=== PATIENT | male | born 1965 | race Caucasian/White ===

== ENCOUNTER 2018-10-16 05:59 | Emergency (ER) | payer MEDICAID ==
[~2018-10-16] VITALS: Ht 175.3 cm; Wt 81.8 kg
[~2018-10-16 05:59] MED LIST: CETI-110 PO; CLIN-96 PO; FAMO20TA8 PO; GABA-532 PO; GABA600T13 PO; NAPR-56 PO; PRED20TA PO
[2018-10-16 06:55] LABS: CLARITY,URINE CLEAR (Clear); COLOR,URINE YELLOW (Yellow); GLUCOSE, URINE NEGATIVE (Neg); KETONES,URINE >=80 mg/dl (Neg); LEUKOCYTE ESTERASE ,URINE NEGATIVE (Neg); NITRITES, URINE NEGATIVE (Neg); OCCULT BLOOD,URINE NEGATIVE (Neg); PH,URINE 7.5 (4.8-8.0); PROTEIN,URINE NEGATIVE (Neg)
[2018-10-16] MEDS ORDERED: ondansetron/PF 4mg/2ml inj IV ONE (06:55)
[2018-10-16] MEDS ORDERED: normal saline 1000ML IV soln IVB ONE (06:55)
[2018-10-16] MEDS ORDERED: pantoprazole 40 MG vial IV ONE (06:55)
[2018-10-16 07:00] LABS: UA COLLECTION TYPE CLN CATCH MIDSTREAM
[2018-10-16 08:59] LABS: BASOPHILS # (AUTO) 0.1 X10'3 (0-0.2); BASOPHILS % (AUTO) 0.3 % (0-1); EOSINOPHILS % (AUTO) 0.3 % (0-6); HEMATOCRIT 39.7 % (42.0-52.0); HEMOGLOBIN 13.2 g/dl (14.0-17.9); MEAN CORPUSCULAR HGB CONC 33.3 g/dL (33.0-36.5); MEAN CORPUSCULAR VOLUME 86.9 FL (78-98); MEAN PLATELET VOLUME 8.8 FL (7.4-10.4); MONOCYTES % (AUTO) 6.5 % (2-12); NEUTROPHILS % (AUTO) 79.9 % (42-75); PLATELET COUNT 246 X10'3 (140-440); RED BLOOD COUNT 4.56 X10'6 (4.70-6.10); RED CELL DISTRIBUTION WIDTH 13.8 % (11.5-14.5); WHITE BLOOD COUNT 15.1 X10'3 (4.5-11.0)
[2018-10-16 09:08] LABS: ALANINE AMINOTRANSFERASE 29 U/L (12-78); ALBUMIN 3.1 G/DL (3.4-5.0); ALBUMIN/GLOBULIN RATIO 0.8 (1.1-1.5); ALKALINE PHOSPHATASE 62 IU/L (46-116); ANION GAP 11 (8-16); ASPARTATE AMINO TRANSFERASE 19 U/L (10-37); BILIRUBIN,TOTAL 0.6 MG/DL (0.1-1.0); BLOOD UREA NITROGEN 9 MG/DL (7-18); BUN/CREATININE RATIO 12.3 (5.4-32.0); CALCIUM 8.1 MG/DL (8.5-10.1); CHLORIDE 106 MMOL/L (99-107); CREATININE 0.73 MG/DL (0.60-1.10); GLUCOSE 106 MG/DL (70-104); LIPASE 63 U/L (73-393); POTASSIUM 3.7 MMOL/L (3.5-5.1); SODIUM 139 MMOL/L (135-145); TOTAL CARBON DIOXIDE 22.2 MMOL/L (24-32); TOTAL PROTEIN 7.1 G/DL (6.4-8.2); eGFR > 90 ML/MIN
--- NOTE | 2018-10-16 09:16 | NUR ---
PT IS SLEEPING ON RIGHT SIDE, RESPIRATIONS SPONTANEOUS, EVEN AND UNLABORED, NO S/S OF DISTRESS DISCOMFORT OR AGITATION.
[2018-10-16] MEDS ORDERED: ONDA8TAB13 PO (09:58)
[2018-10-16] MEDS ORDERED: PANT-47 PO (09:58)
[2018-10-16 10:00] VITALS: BP 154/82
== END 2018-10-16 10:11 | disposition home or self-care (01) ==
LOC: ER 06:00
DX: R10.13 Epigastric pain (principal); R11.2 Nausea with vomiting, unspecified; R19.7 Diarrhea, unspecified; I10 Essential (primary) hypertension; G89.29 Other chronic pain; F12.90 Cannabis use, unspecified, uncomplicated; F15.90 Other stimulant use, unspecified, uncomplicated; F17.200 Nicotine dependence, unspecified, uncomplicated; Z98.890 Other specified postprocedural states; Z88.0 Allergy status to penicillin; Z88.1 Allergy status to other antibiotic agents; Z88.5 Allergy status to narcotic agent; Z88.8 Allergy status to other drugs, medicaments and biological substances; Z79.899 Other long term (current) drug therapy; Z56.0 Unemployment, unspecified
CPT/HCPCS: 36415; 80053; 81003; 83690; 85025; 96361; 96374; 96375; 99283; C9113; J2405; J7030

== ENCOUNTER 2019-05-07 00:31 | Emergency (ER) | payer MEDICAID ==
[~2019-05-07] VITALS: Ht 175.3 cm; Wt 75.0 kg
[~2019-05-07 00:31] MED LIST changes: +CLIN-90 PO; -CLIN-96 PO; +ONDA8TAB13 PO; +PANT-47 PO
[2019-05-07 00:35] VITALS: BP 168/90
[2019-05-07] MEDS ORDERED: DOXY100C43 PO (00:40)
== END 2019-05-07 00:48 | disposition home or self-care (01) ==
LOC: ER 00:32
DX: L03.116 Cellulitis of left lower limb (principal); I10 Essential (primary) hypertension; G89.29 Other chronic pain; F12.90 Cannabis use, unspecified, uncomplicated; F15.90 Other stimulant use, unspecified, uncomplicated; F10.99 Alcohol use, unspecified with unspecified alcohol-induced disorder; Z86.19 Personal history of other infectious and parasitic diseases; Z98.890 Other specified postprocedural states; Z56.0 Unemployment, unspecified; Z88.0 Allergy status to penicillin; Z88.1 Allergy status to other antibiotic agents; Z88.5 Allergy status to narcotic agent; Z88.8 Allergy status to other drugs, medicaments and biological substances; Z79.899 Other long term (current) drug therapy; Z59.0 Homelessness; Y90.9 Presence of alcohol in blood, level not specified
CPT/HCPCS: 99283

== ENCOUNTER 2020-12-05 19:26 | Emergency (ER) | payer MEDICAID ==
[~2020-12-05] VITALS: Ht 175.3 cm; Wt 84.0 kg
[~2020-12-05 19:26] MED LIST changes: -CETI-110 PO; +CETI-91 PO; -CLIN-90 PO; +CLIN-97 PO
[2020-12-05 19:59] VITALS: BP 147/100
[2020-12-05] MEDS ORDERED: DIPH25TA62 PO (22:57)
[2020-12-05] MEDS ORDERED: HYDR28CR14 TOP (22:57)
== END 2020-12-05 23:10 | disposition home or self-care (01) ==
LOC: ER 19:27
DX: L23.89 Allergic contact dermatitis due to other agents (principal); I10 Essential (primary) hypertension; F12.90 Cannabis use, unspecified, uncomplicated; F15.90 Other stimulant use, unspecified, uncomplicated; G89.29 Other chronic pain; Z98.890 Other specified postprocedural states; Z72.89 Other problems related to lifestyle; Z88.0 Allergy status to penicillin; Z88.1 Allergy status to other antibiotic agents; Z88.8 Allergy status to other drugs, medicaments and biological substances; Z79.2 Long term (current) use of antibiotics; Z79.899 Other long term (current) drug therapy; Z86.19 Personal history of other infectious and parasitic diseases; Z56.0 Unemployment, unspecified
CPT/HCPCS: 99284

== ENCOUNTER 2020-12-18 19:31 | Emergency (ER) | payer MEDICAID ==
[~2020-12-18] VITALS: Ht 175.3 cm; Wt 81.8 kg
[~2020-12-18 19:31] MED LIST changes: +DIPH25TA62 PO; +HYDR28CR14 TOP
[2020-12-18 22:01] VITALS: BP 152/80
[2020-12-18] MEDS ORDERED: clindamycin 150mg capsule PO ONE (22:10)
[2020-12-18] MEDS ORDERED: CLIN-117 PO (22:11)
== END 2020-12-18 22:27 | disposition home or self-care (01) ==
LOC: ER 19:33
DX: L03.115 Cellulitis of right lower limb (principal); M54.5 Low back pain; F17.210 Nicotine dependence, cigarettes, uncomplicated; Z56.0 Unemployment, unspecified; F12.10 Cannabis abuse, uncomplicated; F15.10 Other stimulant abuse, uncomplicated; Z88.0 Allergy status to penicillin; Z88.1 Allergy status to other antibiotic agents; Z88.5 Allergy status to narcotic agent; Z88.8 Allergy status to other drugs, medicaments and biological substances; Z79.899 Other long term (current) drug therapy
CPT/HCPCS: 99283

== ENCOUNTER 2021-02-10 20:54 | Emergency (ER) | payer MEDICAID ==
[~2021-02-10] VITALS: Ht 175.3 cm; Wt 77.0 kg
[2021-02-10 21:36] VITALS: BP 130/81
[2021-02-10] MEDS ORDERED: LIDOcaine 1% W/epiNEPHrine 1:200,000 10ml vial IJ ONE (22:05)
--- NOTE | 2021-02-10 22:36 | NUR ---
IFEOMA REDD AT BEDSIDE NOW TO REPAIR LAC TO TOP OF HEAD. HE WILL ORDER HEAD CT. PT ASKED WHERE HE WILL GO WHEN DISCHARGED AND HE STATES AN ADDRESS IN [place] THAT IS A PROPERTY, THEN STATES, HE DOES NOT WANT TO GO THERE. THEN TOLD ME "[address]" AND REPORTS HE CANNOT REMEMBER THE [address]. ASKED IF HE CAN CALL ANYONOE FOR DC TRANSPORT AND HE STATES HE DOES NOT KNOW ANY OF THE NUMBERS. PT IS CONTINUOUOSLY FALILNG ANGELA MID SENTENCE.
--- NOTE | 2021-02-10 23:08 | NUR ---
pt head was wrapped by niranjan nieves.
== END 2021-02-11 00:43 | disposition home or self-care (01) ==
LOC: ER 20:56
DX: S01.01XA Laceration without foreign body of scalp, initial encounter (principal); I10 Essential (primary) hypertension; G89.29 Other chronic pain; F12.90 Cannabis use, unspecified, uncomplicated; F15.90 Other stimulant use, unspecified, uncomplicated; Z86.19 Personal history of other infectious and parasitic diseases; Z98.890 Other specified postprocedural states; Z72.89 Other problems related to lifestyle; Z56.0 Unemployment, unspecified; Z88.0 Allergy status to penicillin; Z88.5 Allergy status to narcotic agent; Z88.1 Allergy status to other antibiotic agents; Z88.8 Allergy status to other drugs, medicaments and biological substances; Z79.2 Long term (current) use of antibiotics; Z79.899 Other long term (current) drug therapy; Y93.89 Activity, other specified; Y92.89 Other specified places as the place of occurrence of the external cause; Y99.8 Other external cause status
CPT/HCPCS: 12001; 70450; 99284

== ENCOUNTER 2021-03-03 20:02 | Emergency (ER) | payer MEDICAID ==
[~2021-03-03] VITALS: Ht 175.3 cm; Wt 80.9 kg
[2021-03-03] MEDS ORDERED: SULF1TAB49 PO (20:50)
[2021-03-03 21:14] VITALS: BP 127/62
== END 2021-03-03 21:15 | disposition home or self-care (01) ==
LOC: ER 20:03
DX: L03.116 Cellulitis of left lower limb (principal); L03.115 Cellulitis of right lower limb; I10 Essential (primary) hypertension; G89.29 Other chronic pain; M54.9 Dorsalgia, unspecified; Z88.0 Allergy status to penicillin; Z88.1 Allergy status to other antibiotic agents; Z88.5 Allergy status to narcotic agent; Z79.899 Other long term (current) drug therapy; Z48.00 Encounter for change or removal of nonsurgical wound dressing
CPT/HCPCS: 99283

== ENCOUNTER 2021-07-05 17:32 | Inpatient (IN) | payer MEDICAID ==
[~2021-07-05] VITALS: Ht 175.3 cm; Wt 71.0 kg
[2021-07-05] MEDS ORDERED: vancomycin/NS 1 GM ADD-VANTAGE 250 ML IV ONE (22:45)
[2021-07-05] MEDS ORDERED: normal saline 1000ML IV soln IV ONE (22:45)
[2021-07-05] MEDS ORDERED: levoFLOXACIN-Levaquin 500mg/D5 100 ML IV SCH (22:45)
[2021-07-05] MEDS ORDERED: LIDOcaine 1% W/epiNEPHrine 1:200,000 10ml vial IJ ONE (22:50)
[2021-07-05] MEDS ORDERED: LIDOcaine 1% w/epiNEPHrine 1:200,000 30ml vial IJ ONE (22:55)
[2021-07-05] MEDS ORDERED: HYDROcodone/acetaminophen 5mg/325mg tablet PO ONE (23:05)
[2021-07-05] MEDS ORDERED: LIDOcaine 1% w/EPI 1:100,000 30ml vial (MDV) IJ ONE (23:10)
[2021-07-05 23:25] LABS: BASOPHILS # (AUTO) 0.1 X10'3 (0-0.2); BASOPHILS % (AUTO) 0.3 % (0-1); EOSINOPHILS # (AUTO) 0.1 X10'3 (0-0.9); EOSINOPHILS % (AUTO) 0.8 % (0-6); HEMOGLOBIN 10.3 g/dl (14.0-17.9); LYMPHOCYTES # (AUTO) 2.4 X10'3 (1.1-4.8); LYMPHOCYTES % (AUTO) 14.7 % (21-51); MEAN CORPUSCULAR HEMOGLOBIN 29.3 PG (27.0-31.0); MEAN CORPUSCULAR HGB CONC 34.2 g/dL (33.0-36.5); MEAN CORPUSCULAR VOLUME 85.7 FL (78-98); MEAN PLATELET VOLUME 7.9 FL (7.4-10.4); MONOCYTES # (AUTO) 1.4 X10'3 (0-0.9); MONOCYTES % (AUTO) 8.5 % (2-12); NEUTROPHILS # (AUTO) 12.2 X10'3 (1.8-7.7); NEUTROPHILS % (AUTO) 75.7 % (42-75); PLATELET COUNT 426 X10'3 (140-440); RED CELL DISTRIBUTION WIDTH 13.7 % (11.5-14.5); WHITE BLOOD COUNT 16.2 X10'3 (4.5-11.0)
[2021-07-05 23:44] LABS: ALANINE AMINOTRANSFERASE 21 U/L (12-78); ALBUMIN 2.5 G/DL (3.4-5.0); ALBUMIN/GLOBULIN RATIO 0.4 (1.1-1.5); ALKALINE PHOSPHATASE 90 IU/L (46-116); ANION GAP 11 (8-16); ASPARTATE AMINO TRANSFERASE 29 U/L (10-37); BILIRUBIN,TOTAL 0.5 MG/DL (0.1-1.0); BLOOD UREA NITROGEN 13 MG/DL (7-18); CALCIUM 8.8 MG/DL (8.5-10.1); CHLORIDE 101 MMOL/L (99-107); CREATININE 0.81 MG/DL (0.60-1.10); GLUCOSE 97 MG/DL (70-104); MAGNESIUM 1.9 MG/DL (1.5-2.4); POTASSIUM 3.6 MMOL/L (3.5-5.1); SODIUM 136 MMOL/L (135-145); TOTAL CARBON DIOXIDE 24.3 MMOL/L (24-32); TOTAL PROTEIN 8.4 G/DL (6.4-8.2); eGFR > 90 ML/MIN
[2021-07-05 23:46] LABS: CLARITY,URINE CLEAR (Clear); COLOR,URINE YELLOW (Yellow); GLUCOSE, URINE NEGATIVE (Neg); KETONES,URINE NEGATIVE (Neg); LEUKOCYTE ESTERASE ,URINE NEGATIVE (Neg); NITRITES, URINE NEGATIVE (Neg); OCCULT BLOOD,URINE TRACE-LYSED (Neg); PROTEIN,URINE NEGATIVE (Neg); UROBILINOGEN,URINE 0.2 E.U/dL (0.2-1.0)
[2021-07-05 23:52] LABS: UA COLLECTION TYPE CLN CATCH MIDSTREAM
[2021-07-05 23:54] LABS: BACTERIA,URINE NONE SEEN /HPF (Neg); RBC,URINE 0-2 /HPF (0-2); SQUAMOUS EPITHELIAL CELL,UR FEW /LPF (FEW); WBC,URINE 0-4 /HPF (0-4)
[2021-07-06] MEDS ORDERED: morphine 2 MG/ML inj. syringe IV PRN ×2 (00:20)
[2021-07-06] MEDS ORDERED: magnesium 4gm in 100ml NS 100 ML IV PRN (00:20)
[2021-07-06] MEDS ORDERED: HYDROcodone/acetaminophen 5mg/325mg tablet PO PRN (00:20)
[2021-07-06] MEDS ORDERED: mag hydrox/Alum hydrox/simeth 30ml oral suspension PO PRN (00:20)
[2021-07-06] MEDS ORDERED: magnesium hydroxide 30ml (MOM) UD suspension PO PRN (00:20)
[2021-07-06] MEDS ORDERED: magnesium 2GM in 50ml NS 50 ML IV PRN (00:20)
[2021-07-06] MEDS ORDERED: acetaminophen 325mg tablet PO PRN ×2 (00:20)
[2021-07-06] MEDS ORDERED: potassium CL 10mEq/100ml bag 100 ML IV PRN (00:20)
[2021-07-06] MEDS ORDERED: magnesium Cl slow-release 64mg tablet PO PRN (00:20)
[2021-07-06] MEDS ORDERED: ondansetron/PF 4mg/2ml inj IV PRN (00:20)
[2021-07-06] MEDS ORDERED: potassium Cl 20 mEq SR tablet PO PRN ×2 (00:20)
[2021-07-06] MEDS: normal saline 1000ml 1,000 ML IV SCH ×3 (00:20→15:32)
[2021-07-06] MEDS ORDERED: nicotine 14mg patch - 24hr TD ONE (00:30)
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
[2021-07-06 01:30] VITALS: BP 105/63
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
--- NOTE | 2021-07-06 02:25 | NUR ---
no left eye, wearing patch, declines to have removed and assessed. right eye intact refuses pupil check Addendum: 07/06/21 at 0229 by Loren Moscoso RN Amended: Links added.
--- NOTE | 2021-07-06 02:42 | NUR ---
LEFT EYE PATRCH NO EYE DENIES TO ANSWER INF ARTIFICIAL EYE IN PLACE. REFUSES TO HAVE ASSESSED Addendum: 07/06/21 at 0247 by Loren Moscoso RN Amended: Links added.
[2021-07-06] MEDS: HYDROcodone/acetaminophen 10/325mg tab PO PRN ×2 (05:24→20:45)
--- NOTE | 2021-07-06 06:05 | NUR ---
Problems reprioritized. Patient report given, questions answered & plan of care reviewed with SUHA PENA. Addendum: 07/06/21 at 0606 by Loren Moscoso RN Amended: Links added.
--- NOTE | 2021-07-06 06:30 | NUR ---
Patient in room [facility]. I have received report from Claritza BORDEN and had the opportunity to ask questions and assume patient care.
[2021-07-06 07:06] VITALS: BP 119/76
[2021-07-06] MEDS: K and/or MAG REPLACEMENT MC SCH ×2 (08:00→20:00)
[2021-07-06] MEDS ORDERED: NO HOME MEDS (08:12)
--- NOTE | 2021-07-06 08:12 | NUR ---
pt experiencing more weakness on the right side in upper extremities. Addendum: 07/06/21 at 0835 by Geovanna Goel - Ananya DAWSON Amended: Links added.
[2021-07-06] MEDS: docusate sod 100mg capsule PO SCH ×2 (08:36→20:44)
[2021-07-06] MEDS: enoxaparin 40mg/0.4ml syringe SUBCUT SCH (08:37)
[2021-07-06] MEDS: VANCOmycin 1250MG/NS 250ml Bag 250 ML IV SCH ×2 (08:48→20:44)
[2021-07-06 11:23] VITALS: BP 124/65
[2021-07-06 11:26] LABS: MAGNESIUM 1.8 MG/DL (1.5-2.4); POTASSIUM 3.7 MMOL/L (3.5-5.1)
[2021-07-06 18:00] VITALS: BP 137/88
--- NOTE | 2021-07-06 18:40 | NUR ---
Patient in room [facility]. I have received report from SUHA Villagomez and had the opportunity to ask questions and assume patient care.
--- NOTE | 2021-07-06 18:40 | NUR ---
Problems reprioritized. Patient report given, questions answered & plan of care reviewed with Kevin RN/Geetha RN.
--- NOTE | 2021-07-06 18:51 | NUR ---
Patient in room [facility]. I have received report from SUHA Villagomez and had the opportunity to ask questions and assume patient care.
[2021-07-06] MEDS: lactobacillus rhamnosus 10,000 MMU CELLS/CAPSULE PO SCH (20:44)
[2021-07-07 00:08] VITALS: BP 136/77
[2021-07-07] MEDS: HYDROcodone/acetaminophen 10/325mg tab PO PRN ×2 (02:44→08:20)
[2021-07-07] MEDS: normal saline 1000ml 1,000 ML IV SCH (02:44)
--- NOTE | 2021-07-07 06:05 | NUR ---
Problems reprioritized. Patient report given, questions answered & plan of care reviewed with SUHA Suarez.
--- NOTE | 2021-07-07 06:05 | NUR ---
I agree with SUHA Iniguezpsychiatric assistant, charting, and report given to SUHA Rowan Addendum: 07/07/21 at 0607 by Kevin Munroe RN SUHA Suarez
--- NOTE | 2021-07-07 06:31 | NUR ---
Patient in room [facility]. I have received report from alexander nix and had the opportunity to ask questions and assume patient care.
[2021-07-07 07:00] VITALS: BP 134/91
[2021-07-07] MEDS ORDERED: VANCOMYCIN LEVEL IV ONE (07:30)
[2021-07-07] MEDS: K and/or MAG REPLACEMENT MC SCH (08:00)
[2021-07-07] MEDS: VANCOmycin 1250MG/NS 250ml Bag 250 ML IV SCH (08:17)
[2021-07-07] MEDS: enoxaparin 40mg/0.4ml syringe SUBCUT SCH (08:18)
[2021-07-07] MEDS: docusate sod 100mg capsule PO SCH (08:19)
[2021-07-07] MEDS: lactobacillus rhamnosus 10,000 MMU CELLS/CAPSULE PO SCH (08:19)
[2021-07-07] MEDS ORDERED: CLIN-97 PO ×2 (10:55)
[2021-07-07 11:38] VITALS: BP 152/99
[2021-07-07 11:59] LABS: BASOPHILS # (AUTO) 0.1 X10'3 (0-0.2); BASOPHILS % (AUTO) 1.1 % (0-1); EOSINOPHILS # (AUTO) 0.2 X10'3 (0-0.9); EOSINOPHILS % (AUTO) 1.9 % (0-6); HEMATOCRIT 32.4 % (42.0-52.0); HEMOGLOBIN 10.7 g/dl (14.0-17.9); LYMPHOCYTES # (AUTO) 2.7 X10'3 (1.1-4.8); LYMPHOCYTES % (AUTO) 24.7 % (21-51); MEAN CORPUSCULAR HEMOGLOBIN 29.1 PG (27.0-31.0); MEAN CORPUSCULAR HGB CONC 32.9 g/dL (33.0-36.5); MEAN CORPUSCULAR VOLUME 88.5 FL (78-98); MEAN PLATELET VOLUME 8.4 FL (7.4-10.4); MONOCYTES # (AUTO) 0.9 X10'3 (0-0.9); MONOCYTES % (AUTO) 7.7 % (2-12); NEUTROPHILS # (AUTO) 7.1 X10'3 (1.8-7.7); NEUTROPHILS % (AUTO) 64.6 % (42-75); PLATELET COUNT 452 X10'3 (140-440); RED BLOOD COUNT 3.66 X10'6 (4.70-6.10)
[2021-07-07 12:18] LABS: ALBUMIN 2.1 G/DL (3.4-5.0); ANION GAP 8 (8-16); BLOOD UREA NITROGEN 8 MG/DL (7-18); BUN/CREATININE RATIO 10.8 (5.4-32.0); CALCIUM 8.7 MG/DL (8.5-10.1); CHLORIDE 106 MMOL/L (99-107); CREATININE 0.74 MG/DL (0.60-1.10); GLUCOSE 101 MG/DL (70-104); MAGNESIUM 1.7 MG/DL (1.5-2.4); POTASSIUM 4.5 MMOL/L (3.5-5.1); SODIUM 139 MMOL/L (135-145); TOTAL CARBON DIOXIDE 25.4 MMOL/L (24-32); eGFR > 90 ML/MIN
--- NOTE | 2021-07-07 13:56 | NUR ---
Pt discharged > 2hrs ago however we are still waiting on [facility] for patient to D/C with. Called [facility] and left a message.
--- NOTE | 2021-07-07 16:53 | NUR ---
pt discharged at 1500. belongings sent with pt. iv removed, tip intact, no complications. Pt educated on follow up with wound care. pt discharged in stable condition
[2021-07-08] MEDS ORDERED: LEVO750T46 PO (11:59)
--- NOTE | 2021-07-08 12:21 | NUR ---
Tried to contact patient per Dr Sheehan request due to sensitivity came back on cultures and he is calling in a new rx to [facility] on [address]. We have no phone number for patient and I contacted the [facility] to see if they have a phone number and they gave me [phone] and when I called this number it is disconnected. Per Valery at the pharmacy patient has not picked up his prescription yet and they are aware to change patients Rx to the current one called in. Advised Dr Sheehan, and I advised Ashley with case management and she will get the message to wound care due to patient has appt on Saturday the Jul 10.
== END 2021-07-07 15:16 | disposition home or self-care (01) | DRG 951 ==
LOC: ER 17:33 → ED HOLD 07-06 00:21 → EDBEDREQ 07-06 00:37 → SUR 3N 07-06 01:20
PROVIDERS: ADMIT Internal Medicine; ATTEND Family Medicine
PROC: 0S9D0ZZ Drainage of Left Knee Joint, Open Approach (ICD-10-PCS; principal; 2021-07-05)
DX: L03.116 Cellulitis of left lower limb (principal); B19.20 Unspecified viral hepatitis C without hepatic coma; L02.416 Cutaneous abscess of left lower limb; F17.210 Nicotine dependence, cigarettes, uncomplicated; G62.9 Polyneuropathy, unspecified; I10 Essential (primary) hypertension; B95.4 Other streptococcus as the cause of diseases classified elsewhere; K21.9 Gastro-esophageal reflux disease without esophagitis; F12.90 Cannabis use, unspecified, uncomplicated; G89.29 Other chronic pain; M54.9 Dorsalgia, unspecified; Z88.0 Allergy status to penicillin; Z88.5 Allergy status to narcotic agent; Z88.8 Allergy status to other drugs, medicaments and biological substances; Z56.0 Unemployment, unspecified; Z79.899 Other long term (current) drug therapy
CPT/HCPCS: 10060; 36415; 73564; 73590; 80048; 80053; 81001; 83605; 83735; 83880; 84132; 84145; 85025; 87040; 87070; 87077; 87081; 87186; 97116; 97161; 97530; 99285; G0378; J1650; J1956; J3370; J7030

== ENCOUNTER 2021-07-11 11:45 | Emergency (ER) | payer MEDICAID ==
[~2021-07-11] VITALS: Ht 175.3 cm; Wt 77.3 kg
[~2021-07-11 11:45] MED LIST changes: -CETI-91 PO; -CLIN-97 PO; -DIPH25TA62 PO; -FAMO20TA8 PO; -GABA-532 PO; -GABA600T13 PO; -HYDR28CR14 TOP; +LEVO750T46 PO; -NAPR-56 PO; -ONDA8TAB13 PO; -PANT-47 PO; -PRED20TA PO
[2021-07-11 12:22] VITALS: BP 155/97
== END 2021-07-11 19:13 | disposition home or self-care (01) ==
LOC: ER 11:46
DX: L02.416 Cutaneous abscess of left lower limb (principal); I10 Essential (primary) hypertension; G89.29 Other chronic pain; F12.90 Cannabis use, unspecified, uncomplicated; F15.90 Other stimulant use, unspecified, uncomplicated; Z86.19 Personal history of other infectious and parasitic diseases; Z98.890 Other specified postprocedural states; Z72.89 Other problems related to lifestyle; Z56.0 Unemployment, unspecified; Z88.0 Allergy status to penicillin; Z88.5 Allergy status to narcotic agent; Z88.1 Allergy status to other antibiotic agents; Z88.8 Allergy status to other drugs, medicaments and biological substances; Z79.2 Long term (current) use of antibiotics
CPT/HCPCS: 99281

== ENCOUNTER 2021-09-08 11:05 | Emergency (ER) | payer MEDICAID ==
[~2021-09-08] VITALS: Ht 175.3 cm; Wt 77.0 kg
[2021-09-08 11:11] VITALS: BP 133/87
[2021-09-08] MEDS ORDERED: BENZ-38 PO (12:43)
== END 2021-09-08 13:00 | disposition home or self-care (01) ==
LOC: ER 11:05
DX: U07.1 COVID-19 (principal); G89.29 Other chronic pain; M54.9 Dorsalgia, unspecified; Z88.0 Allergy status to penicillin; Z88.1 Allergy status to other antibiotic agents; Z88.5 Allergy status to narcotic agent; Z79.899 Other long term (current) drug therapy
CPT/HCPCS: 87635; 99283; C9803

== ENCOUNTER 2021-09-17 10:37 | Emergency (ER) | payer MEDICAID ==
[~2021-09-17] VITALS: Ht 175.3 cm; Wt 75.0 kg
[~2021-09-17 10:37] MED LIST changes: +BENZ-38 PO; -LEVO750T46 PO
--- NOTE | 2021-09-17 12:00 | NUR ---
Patient given urinal.
[2021-09-17 12:16] VITALS: BP 152/100
== END 2021-09-17 12:18 | disposition home or self-care (01) ==
LOC: ER 10:38
DX: S60.412A Abrasion of right middle finger, initial encounter (principal); M25.562 Pain in left knee; R51.9 Headache, unspecified; M79.641 Pain in right hand; Z86.19 Personal history of other infectious and parasitic diseases; M54.2 Cervicalgia; R29.810 Facial weakness; I10 Essential (primary) hypertension; G89.29 Other chronic pain; F12.90 Cannabis use, unspecified, uncomplicated; F15.90 Other stimulant use, unspecified, uncomplicated; Z56.0 Unemployment, unspecified; Z98.890 Other specified postprocedural states; Z72.89 Other problems related to lifestyle; Z88.0 Allergy status to penicillin; Z88.1 Allergy status to other antibiotic agents; Z88.8 Allergy status to other drugs, medicaments and biological substances; Z79.899 Other long term (current) drug therapy; W19.XXXA Unspecified fall, initial encounter; Y93.89 Activity, other specified; Y92.89 Other specified places as the place of occurrence of the external cause; Y99.8 Other external cause status
CPT/HCPCS: 70450; 72125; 73130; 99284

== ENCOUNTER 2021-12-22 18:55 | Emergency (ER) | payer MEDICAID ==
[~2021-12-22] VITALS: Ht 175.3 cm; Wt 75.0 kg
[2021-12-22 19:21] VITALS: BP 128/92
== END 2021-12-22 21:10 | disposition home or self-care (01) ==
LOC: ER 18:56
DX: M25.552 Pain in left hip (principal); M25.551 Pain in right hip; Z71.89 Other specified counseling; I10 Essential (primary) hypertension; G89.29 Other chronic pain; F12.90 Cannabis use, unspecified, uncomplicated; F15.90 Other stimulant use, unspecified, uncomplicated; Z72.89 Other problems related to lifestyle; Z98.890 Other specified postprocedural states; Z56.0 Unemployment, unspecified
CPT/HCPCS: 99281

== ENCOUNTER 2022-01-29 16:13 | Emergency (ER) | payer MEDICAID ==
[~2022-01-29] VITALS: Ht 175.3 cm; Wt 84.1 kg
[2022-01-29 17:07] VITALS: BP 157/98
[2022-01-29] MEDS ORDERED: clindamycin 150mg capsule PO ONE (21:50)
[2022-01-29] MEDS ORDERED: CLIN300C63 PO (21:52)
== END 2022-01-29 22:14 | disposition home or self-care (01) ==
LOC: ER 16:14
DX: L03.211 Cellulitis of face (principal); L03.313 Cellulitis of chest wall
CPT/HCPCS: 99283

== ENCOUNTER 2023-02-23 14:35 | Emergency (ER) | payer MEDICAID ==
[~2023-02-23] VITALS: Ht 175.3 cm; Wt 59.2 kg
[2023-02-23 14:50] VITALS: BP 129/95; PULSE 78; RESP 16; TEMP 99.2; O2SAT 99
[2023-02-23] MEDS ORDERED: IBUP-1986 PO (14:52)
[2023-02-23] MEDS ORDERED: SULF1TAB49 PO (14:52)
== END 2023-02-23 15:00 | disposition home or self-care (01) ==
LOC: ER 14:36
DX: L03.031 Cellulitis of right toe (principal); R22.41 Localized swelling, mass and lump, right lower limb; Z59.00 Homelessness unspecified; I10 Essential (primary) hypertension; G89.29 Other chronic pain; F12.90 Cannabis use, unspecified, uncomplicated; F15.90 Other stimulant use, unspecified, uncomplicated; Z56.0 Unemployment, unspecified; Z72.89 Other problems related to lifestyle; Z98.890 Other specified postprocedural states; Z88.0 Allergy status to penicillin; Z79.2 Long term (current) use of antibiotics; Z79.899 Other long term (current) drug therapy
CPT/HCPCS: 99283